=== PATIENT | female | born 1965 | race Caucasian/White ===

== ENCOUNTER 2021-09-11 10:48 | Emergency (ER) | payer MEDICAID, OTHER ==
[~2021-09-11] VITALS: Ht 170.2 cm; Wt 91.6 kg
[2021-09-11 10:55] VITALS: BP 140/71
[2021-09-11 11:36] LABS: Urine Bacteria NONE SEEN /hpf (None Seen); Urine Blood 3+ /uL (Negative); Urine Mucus FEW (None Seen); Urine Specific Gravity 1.023 (1.001-1.035); Urine WBC 158 /hpf (0 - 5)
[2021-09-11 11:53] LABS: Basophils # (auto) 0 10 ^3/uL (0-0.2); Basophils % (auto) 0.3 % (0.0-2.0); Eosinophils # (auto) 0 10 ^3/uL (0-0.8); Eosinophils % (auto) 0.4 % (0.0-7.0); Hematocrit 40.9 % (36.0-46.0); Hemoglobin 13.8 g/dL (12.2-16.2); Lymphocytes # (auto) 0.6 10 ^3/uL (0.4-5.4); Lymphocytes % (auto) 14.1 % (10.0-50.0); Mean Corpuscular Hemoglobin 32.9 pg (28.0-32.0); Mean Corpuscular Hgb Conc. 33.7 g/dL (32.0-36.0); Mean Corpuscular Volume 97.7 fL (80.0-100.0); Monocytes # (auto) 0.3 10 ^3/uL (0-1.3); Monocytes % (auto) 8.3 % (0.0-12.0); Neutrophils # (auto) 3.2 10 ^3/uL (1.6-8.6); Neutrophils % (auto) 76.9 % (37.0-80.0); Nucleated Red Blood Cells % 0.1 %; Red Blood Cells 4.19 10^6/uL (4.0-5.20); Red Cell Distribution Width 14.1 % (11.8-14.3); White Blood Cell 4.1 10^3/uL (4.4-10.8)
[2021-09-11 12:10] LABS: Albumin 3.6 g/dL (3.4-5.0); BUN/Creatinine Ratio 18.8; Calcium 8.7 mg/dL (8.5-10.1)
[2021-09-11 12:11] LABS: INR 1.04 (0.9-1.15); Partial Thromboplastin Time 26.2 sec (23.6-33.0)
[2021-09-11 12:13] LABS: Bilirubin, Total 0.4 mg/dL (0.2-1.0); Total Protein 7.3 g/dL (6.4-8.2)
[2021-09-11] MEDS ORDERED: SULF400T11 PO (14:36)
[2021-09-11] MEDS ORDERED: NAPR500T31 PO (14:36)
== END 2021-09-11 14:39 | disposition home or self-care (01) ==
LOC: ER 10:48
DX: N39.0 Urinary tract infection, site not specified (principal); N95.9 Unspecified menopausal and perimenopausal disorder; D25.9 Leiomyoma of uterus, unspecified; Z32.02 Encounter for pregnancy test, result negative
CPT/HCPCS: 36415; 76830; 76856; 80053; 81001; 81025; 84443; 85025; 85610; 85730

== ENCOUNTER 2023-09-16 16:42 | Emergency (ER) | payer OTHER, MEDICAID ==
[~2023-09-16] VITALS: Ht 167.6 cm; Wt 64.1 kg
[~2023-09-16 16:42] MED LIST: NAPR-746 PO; SULF400T11 PO
[2023-09-16 17:08] VITALS: BP 92/69; PULSE 69; RESP 18; TEMP 98.8; O2SAT 100
[2023-09-16] MEDS ORDERED: BACDST PO (20:49)
[2023-09-16] MEDS ORDERED: CEPH500C PO (20:49)
[2023-09-16] MEDS: cefTRIAXone SOD 1,000 MG VL IM ONE (21:20)
== END 2023-09-16 21:33 | disposition home or self-care (01) ==
LOC: ER 16:42
DX: H00.031 Abscess of right upper eyelid (principal); M19.90 Unspecified osteoarthritis, unspecified site; Z88.8 Allergy status to other drugs, medicaments and biological substances; Z79.899 Other long term (current) drug therapy
CPT/HCPCS: 96372; 99283; J0696